=== PATIENT | male | born 1965 ===

== ENCOUNTER 2021-08-30 16:25 | Emergency (ER) | payer SELFPAY ==
[2021-08-31 08:03] VITALS: BP 168/98
--- NOTE | 2021-08-31 09:17 | Emergency Department Report ---
ED General Adult HPI - General Chief complaint: Extremity Problem,Nontraumatic Stated complaint: RT LEG PAIN Source: patient Mode of arrival: Ambulatory Limitations: No Limitations - History of Present Illness Initial comments: 55-year-old male with a presents to the ED complaining right leg pain x1 week. Patient states that pain started in his upper groin area and migrates to his lower leg. Patient states that he had a DVT in his left leg and is concerned that he might have 1 in his right leg. Denies any anticoagulant medication at present. He states that he has a history of hypertension and left leg DVT. Patient has swelling noted to the right calf and right lower leg. Patient is able to ambulate states that he has pain in the right upper calf leg. Patient states that pain is a current 5 out of 10. Patient denies any numbness or tingling. Patient denies any chest pain or shortness of breath at present time. Patient is alert and oriented x3. No acute distress noted. No ill appearance noted. Severity scale (0 -10): 8 - Related Data Previous Rx's Medication Instructions Recorded Last Taken Type Rivaroxaban [Xarelto Starter Pack] 1 each PO DAILY 63 Days #30 tab 08/31/21 Unkn own Rx Allergies Allergy/AdvReac Type Severity Reaction Status Date / Time No Known Allergies Allergy Verified 08/30/21 17:28 ED Review of Systems ROS: Stated complaint: RT LEG PAIN Other details as noted in HPI ED Past Medical Hx - Medications Home Medications: Home Medications Medication Instructions Recorded Confirmed Last Taken Type Rivaroxaban [Xarelto Starter Pack] 1 each PO DAILY 63 Days #30 tab 08/31/21 Unknown Rx ED Physical Exam - General Limitations: No Limitations ED Course Vital Signs 08/30/21 08/31/21 17:28 08:02 Temperature 99.1 F 97.9 F Pulse Rate 76 61 Respiratory 18 18 Rate Blood Pressure 183/96 Blood Pressure 168/98 [Right] O2 Sat by Pulse 98 100 Oximetry ED Medical Decision Making - Lab Data Result diagrams: 08/31/21 10:24 08/31/21 10:24 - Radiology Data [facility] [address] [place] [address] Cat Scan Report Signed Patient: IVANA BERNAL MR#: [id number] : 1965 Acct:[id number] Age/Sex: 55 / M ADM Date: 08/30/21 Loc: ED Attending Dr: Ordering Physician: GENEVA NATION Date of Service: 08/31/21 Procedure(s): CT angio chest Accession Number(s): [id number] cc: GENEVA NATION CT angio chest INDICATION / CLINICAL INFORMATION: rule out PE. TECHNIQUE: Axial CT images were obtained through the chest after injection of 100 cc of Omnipaque 350 IV contrast. 3 plane MIP and/or 3D reconstructions were produced. All CT scans at this location are performed using CT dose reduction for ALARA by means of automated exposure control. COMPARISON: None available. FINDINGS: PULMONARY ARTERIES: There are acute subsegmental pulmonary artery filling defects involving the right upper lobe (series 2 image 40) and right lower lobe (series 2 image 78). No central or segmental pulmonary embolus. No discrete pulmonary artery filling defect on the left. THORACIC AORTA: Mild atherosclerotic calcification without acute abnormality. HEART: Mild cardiac enlargement. No pericardial effusion. No evidence of right heart strain. CORONARY ARTERY CALCIFICATION: No significant calcification. LYMPHADENOPATHY: No significant thoracic lymphadenopathy. LUNGS/PLEURA: Mild emphysema with scarring in the lingula and bilateral lower lobes. No acute airspace disease. No pleural effusion or pneumothorax. OTHER FINDINGS: None. UPPER ABDOMEN: Low-density adrenal thickening noted. Small hypodensities in the right kidney are incompletely characterized, though statistically reflect cysts. No acute findings. SKELETAL SYSTEM: No acute osseous findings. IMPRESSION: 1. Acute subsegmental pulmonary emboli involving the right upper and right lower lobe. 2. Mild emphysema with mild parenchymal scarring. No acute interstitial or airspace disease. Findings were discussed with JEFF Dang by phone on 08/31/2021 at 1:56 PM Signer Name: Luis Gimenez MD Signed: 08/31/2021 2:56 PM Workstation Name: [email or web address] Transcribed By: KEVIN Dictated By: LUIS GIMENEZ MD Electronically Authenticated By: LUIS GIMENEZ MD Signed Date/Time: 08/31/211455 DD/ 45 TD/TT: [facility] [address] [place] [address] Vascular Lab Report Signed with Mary Patient: IVANA BERNAL MR#: [id number] : 1965 Acct:[id number] Age/Sex: 55 / M ADM Date: 08/30/21 Loc: ED Attending Dr: Ordering Physician: GENEVA NATION Date of Service: 08/31/21 Procedure(s): VL venous duplex LE BILAT Accession Number(s): [id number] cc: GENEVA NATION ADDENDUM Addendum: Mild internal echoes are seen within the left femoral and left popliteal vein, though there is normal compressibility of the veins without abnormal color Doppler flow. No definite thrombus in the left lower extremity. Signer Name: Luis Gimenez MD Signed: 08/31/2021 12:55 PM Workstation Name: [id number] Addendum Transcribed By: KEVIN Addendum Dictated By: LUIS GIMENEZ MD Addendum Electronically Authenticated By: LUIS GIMENEZ MD Addendum Signed Date/Time: 08/31/21 1255 DD/ TD/TT: / DUPLEX DOPPLER LOWER EXTREMITY VEINS, BILATERAL INDICATION / CLINICAL INFORMATION: bilateral edema. TECHNIQUE: Duplex doppler imaging was performed through the veins of both lower extremities using venous compression and other maneuvers. COMPARISON: None available. FINDINGS: RIGHT COMMON FEMORAL VEIN: Acute thrombus.Thrombus involves the right external iliac vein RIGHT FEMORAL VEIN: Acute thrombus. RIGHT POPLITEAL VEIN: Acute thrombus. RIGHT CALF VEINS: Negative. LEFT COMMON FEMORAL VEIN: Negative. LEFT FEMORAL VEIN: Negative. LEFT POPLITEAL VEIN: Negative. LEFT CALF VEINS: Negative. ADDITIONAL FINDINGS: None. IMPRESSION: 1. Acute DVT extending from the right external iliac vein to the popliteal vein. 2. No evidence of acute DVT in the left lower extremity. Signer Name: Luis Gimenez MD Signed: 08/31/2021 12:02 PM Workstation Name: [email or web address] Transcribed By: KEVIN Dictated By: LUIS GIMENEZ MD Electronically Authenticated By: LUIS GIMENEZ MD Signed Date/Time: 08/31/21 1202 DD/ 1158 TD/TT: -- [Addendum Report Added by LUIS GIMENEZ at 2021-08-31 13:00:46] [address] [place] [address] Vascular Lab Report Signed Patient: IVANA BERNAL MR#: [id number] : 1965 Acct:[id number] Age/Sex: 55 / M ADM Date: 08/30/21 Loc: ED Attending Dr: Ordering Physician: GENEVA NATION Date of Service: 08/31/21 Procedure(s): VL venous duplex LE BILAT Accession Number(s): [id number] cc: GENEVA NATION DUPLEX DOPPLER LOWER EXTREMITY VEINS, BILATERAL INDICATION / CLINICAL INFORMATION: bilateral edema. TECHNIQUE: Duplex doppler imaging was performed through the veins of both lower extremities using venous compression and other maneuvers. COMPARISON: None available. FINDINGS: RIGHT COMMON FEMORAL VEIN: Acute thrombus.Thrombus involves the right external iliac vein RIGHT FEMORAL VEIN: Acute thrombus. RIGHT POPLITEAL VEIN: Acute thrombus. RIGHT CALF VEINS: Negative. LEFT COMMON FEMORAL VEIN: Negative. LEFT FEMORAL VEIN: Negative. LEFT POPLITEAL VEIN: Negative. LEFT CALF VEINS: Negative. ADDITIONAL FINDINGS: None. IMPRESSION: 1. Acute DVT extending from the right external iliac vein to the popliteal vein. 2. No evidence of acute DVT in the left lower extremity. Signer Name: Luis Gimenez MD Signed: 08/31/2021 12:02 PM Workstation Name: [email or web address] Transcribed By: KEVIN Dictated By: LUIS GIMENEZ MD Electronically Authenticated By: LUIS GIMENEZ MD Signed Date/Time: 08/31/21 1202 DD/ 1158 TD/TT: Print Cancel - Medical Decision Making 55-year-old male with a presents to the ED complaining right leg pain x1 week. Patient states that pain started in his upper groin area and migrates to his lower leg. Patient states that he had a DVT in his left leg and is concerned that he might have 1 in his right leg. Denies any anticoagulant medication at present. He states that he has a history of hypertension and left leg DVT. Patient has swelling noted to the right calf and right lower leg. Patient is able to ambulate states that he has pain in the right upper calf leg. Patient states that pain is a current 5 out of 10. Patient denies any numbness or tingling. Patient denies any chest pain or shortness of breath at present time. Patient is alert and oriented x3. No acute distress noted. No ill appearance noted. Physical examination patient has mild swelling noted to the calf area. No erythema noted. Skin warm and dry to touch. Lung sounds are clear. Patient eating Muller during course of stay in the ED. patient up ambulating down hallway of the ED with no acute distress noted. Patient given Lovenox SQ. Patient Wells Score > 2. Bilateral Doppler with shows a DVT in the right lower leg. CTA shows pulmonary embolism. Critical care attestation.: If time is entered above; I have spent that time in minutes in the direct care of this critically ill patient, excluding procedure time. ED Disposition Clinical Impression: Pulmonary embolism Qualifiers: Pulmonary embolism type: unspecified Chronicity: acute Acute cor pulmonale presence: unspecified Qualified Code(s): I26.99 - Other pulmonary embolism without acute cor pulmonale DVT (deep venous thrombosis) Qualifiers: DVT location: lower extremity Affected thrombotic vein of extremity: femoral Chronicity: acute Laterality: right Qualified Code(s): I82.411 - Acute embolism and thrombosis of right femoral vein Disposition: 01 HOME / SELF CARE / HOMELESS Is pt being admited?: No Does the pt Need Aspirin: No Condition: Stable Instructions: Pulmonary Embolism, Deep Vein Thrombosis, Bleeding Precautions When on Anticoagulant Therapy, Adult Additional Instructions: Take medication as prescribed Return to the ED for any worsening symptoms Prescriptions: Rivaroxaban [Xarelto Starter Pack] 1 each PO DAILY 63 Days #30 tab Referrals: MARY KATE THOMAS MD [Primary Care Provider] - 3-5 Days [facility] [Provider Group] - 3-5 Days ABI BRIDGES MD [Staff Physician] - 3-5 Days Forms: Work/School Release Form(ED) Time of Disposition: 15:25
[2021-08-31 11:13] LABS: Hematocrit 44.5 % (35.5-45.6); Hemoglobin 14.4 gm/dl (11.8-15.2); Mean Corpuscular HGB Conc 32 % (32-34); Mean Corpuscular Volume 92 fl (84-94); Platelet Count 159 K/mm3 (140-440); Red Blood Count 4.84 M/mm3 (3.65-5.03); Red Cell Distribution Width 13.7 % (13.2-15.2)
[2021-08-31 11:32] LABS: Alanine Aminotransferase 33 units/L (7-56); Albumin 4.2 g/dL (3.9-5); BUN/Creatinine Ratio 12; Blood Urea Nitrogen 12 mg/dL (9-20); Calcium 9.3 mg/dL (8.4-10.2); Hemolysis Index 11
[2021-08-31 11:59] LABS: INR 0.97 (0.87-1.13)
--- NOTE | 2021-08-31 12:06 | Vascular Lab Report ---
DUPLEX DOPPLER LOWER EXTREMITY VEINS, BILATERAL INDICATION / CLINICAL INFORMATION: bilateral edema. TECHNIQUE: Duplex doppler imaging was performed through the veins of both lower extremities using venous kandi barry and other maneuvers. COMPARISON: None available. FINDINGS: RIGHT COMMON FEMORAL VEIN: Acute thrombus.Thrombus involves the right external iliac vein RIGHT FEMORAL VEIN: Acute thrombus. RIGHT POPLITEAL VEIN: Acute thrombus. RIGHT CALF VEINS: Negative. LEFT COMMON FEMORAL VEIN: Negative. LEFT FEMORAL VEIN: Negative. LEFT POPLITEAL VEIN: Negative. LEFT CALF VEINS: Negative. ADDITIONAL FINDINGS: None. IMPRESSION: 1. Acute DVT extending from the right external iliac vein to the popliteal vein. 2. No evidence of acute DVT in the left lower extremity. Signer Name: Kareem Gimenez MD Signed: 08/31/2021 12:02 PM Workstation Name: [email or web address]
--- NOTE | 2021-08-31 15:00 | Cat Scan Report ---
CT angio chest INDICATION / CLINICAL INFORMATION: rule out PE. TECHNIQUE: Axial CT images were obtained through the chest after injection of 100 cc of Omnipaque 350 IV contrast. 3 plane MIP and/or 3D reconstructions were produced. All CT scans at this location are performed using CT dose reduction for ALARA by means of automated exposure control. COMPARISON: None available. FINDINGS: PULMONARY ARTERIES: There are acute subsegmental pulmonary artery filling defects involving the right upper lobe (series 2 image 40) and right lower lobe (series 2 image 78). No central or segmental pul monary embolus. No discrete pulmonary artery filling defect on the left. THORACIC AORTA: Mild atherosclerotic calcification without acute abnormality. HEART: Mild cardiac enlargement. No pericardial effusion. No evidence of right heart strain. CORONARY ARTERY CALCIFICATION: No significant calcification. LYMPHADENOPATHY: No significant thoracic lymphadenopathy. LUNGS/PLEURA: Mild emphysema with scarring in the lingula and bilateral lower lobes. No acute airspac e disease. No pleural effusion or pneumothorax. OTHER FINDINGS: None. UPPER ABDOMEN: Low-density adrenal thickening noted. Small hypodensities in the right kidney are inco mpletely characterized, though statistically reflect cysts. No acute findings. SKELETAL SYSTEM: No acute osseous findings. IMPRESSION: 1. Acute subsegmental pulmonary emboli involving the right upper and right lower lobe. 2. Mild emphysema with mild parenchymal scarring. No acute interstitial or airspace disease. Findings were discussed with JEFF Dang by phone on 08/31/2021 at 1:56 PM Signer Name: Kareem Gimenez MD Signed: 08/31/2021 2:56 PM Workstation Name: [email or web address]
[2021-08-31] MEDS ORDERED: ENOXAPARIN 100 MG/1 ML INJ SUB-Q ONE (15:01)
== END 2021-08-31 15:36 | disposition home or self-care (01) ==
LOC: ED 16:25
DX: I26.99 Other pulmonary embolism without acute cor pulmonale (principal); Z86.718 Personal history of other venous thrombosis and embolism
CPT/HCPCS: 36415; 71275; 80053; 85027; 85610; 85730; 93970; 99284; J1650; Q9967